=== PATIENT | female | born 1945 | race Caucasian/White ===

== ENCOUNTER 2024-04-25 07:08 | Day surgery (SDC) | payer OTHER ==
[~2024-04-25] VITALS: Ht 157.5 cm; Wt 53.6 kg
[~2024-04-25 07:08] MED LIST: SODIUM CHLORIDE 0.9% 1,000 ML ONE
[2024-04-25] MEDS ORDERED: SODIUM CHLORIDE 0.9% 1,000 ML ONE (07:30)
[2024-04-25] MEDS ORDERED: ASPI-1450 PO (08:13)
[2024-04-25] MEDS ORDERED: MONT-35 PO (08:14)
[2024-04-25] MEDS ORDERED: ESOM20CA31 PO (08:14)
[2024-04-25] MEDS ORDERED: ALEN70TA65 PO (08:15)
[2024-04-25] MEDS ORDERED: ATOR40TA28 PO (08:15)
[2024-04-25] MEDS ORDERED: FentaNYL CITRATE PF 100 MCG/2 ML VIAL ONE (08:24)
[2024-04-25] MEDS ORDERED: MIDAZOLAM HCL 2 MG/2 ML VIAL ONE (08:25)
[2024-04-25] MEDS: SODIUM CHLORIDE 0.9% 1,000 ML IV ONE (09:01)
[2024-04-25 09:31] VITALS: PULSE 84; RESP 21; O2SAT 100
[2024-04-25] MEDS ORDERED: MethylPREDNISolone SOD SUCC 125 MG/2 ML VIAL ONE (10:06)
[2024-04-25] MEDS: MethylPREDNISolone SOD SUCC 125 MG/2 ML VIAL IVP ONE (10:11)
== END 2024-04-25 13:00 | disposition home or self-care (01) ==
LOC: SURGERY 07:08
PROVIDERS: ATTEND Internal Medicine Critical Care Medicine
DX: R05.3 Chronic cough (principal); R49.0 Dysphonia; R04.2 Hemoptysis; R91.8 Other nonspecific abnormal finding of lung field; J47.9 Bronchiectasis, uncomplicated; J38.4 Edema of larynx; B37.0 Candidal stomatitis; I10 Essential (primary) hypertension; J45.909 Unspecified asthma, uncomplicated; Z90.49 Acquired absence of other specified parts of digestive tract; Z95.5 Presence of coronary angioplasty implant and graft
CPT/HCPCS: 31623; 87206; 87101; 87220; 87070; 88108; 31624; 94640; 71045; 87015; 93005; J3010; J2250; J2919; J7030